=== PATIENT | female | born 1965 | race African-American/Black ===

== ENCOUNTER 2020-07-04 15:49 | Outpatient (CLI) | payer OTHER ==
--- NOTE | 2020-07-04 16:19 | RAD ---
EXAM: XR Lumbar Spine Comp W Bending PROVIDED CLINICAL HISTORY: Mild fascial pain syndrome of the lumbar spine. 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 COMPARISON: None FINDINGS: There are 5 nonrib-bearing lumbar-type vertebral bodies. Facet degenerative changes are seen in the l ower lumbar spine. Grade 1 anterolisthesis of L5 on S1 is present measuring approximately 6 mm. There is no abnormal translational motion seen between the flexion and extension views. The vertebral body heights are within normal limits. No fracture is seen. There is suggestion mild narrowing of the L5-S1 intervertebral disc space. IMPRESSION: Degenerative changes lower lumbar spine with grade 1 anterolisthesis of L4 on 5 related to facet dege nerative changes.
== END 2020-07-04 15:50 | disposition home or self-care (01) ==
LOC: BICRAD 15:49
PROVIDERS: ATTEND Internal Medicine
DX: M79.18 Myalgia, other site (principal); M47.816 Spondylosis without myelopathy or radiculopathy, lumbar region; M43.16 Spondylolisthesis, lumbar region
CPT/HCPCS: 72100